=== PATIENT | female | born 1995 | race Caucasian/White ===

== ENCOUNTER 2019-12-11 14:21 | Emergency (ER) | payer SELFPAY ==
[~2019-12-11] VITALS: Ht 160 cm; Wt 90.0 kg
[2019-12-11 14:55] LABS: BILIRUBIN,URINE SMALL (NEG); CLARITY,URINE CLEAR; COLOR,URINE AMBER; NITRITE,URINE NEGATIVE (NEG); PROTEIN,URINE 30 mg/dL (NEG-TRACE); UROBILINOGEN,URINE 0.2 mg/dL (0.2 mg/dL)
[2019-12-11 14:59] LABS: BACTERIA,URINE FEW /HPF (0-FEW); SQUAMOUS EPITHELIAL CELL,UR MANY /LPF
[2019-12-11 15:00] LABS: AMORPHOUS SEDIMENT,UR PRESENT /HPF
[2019-12-11] MEDS ORDERED: HYDROmorphone 2 MG/ML VIAL IVP ONE ×2 (15:00→16:45)
[2019-12-11] MEDS ORDERED: KETOROLAC 30 MG/ML VIAL. IVP ONE (15:00)
[2019-12-11] MEDS ORDERED: ONDANSETRON PF 4 MG/2 ML VIAL. IVP ONE ×2 (15:00→19:00)
--- NOTE | 2019-12-11 15:01 | PHYS DOC ---
Past Medical History Past Medical History: No Pertinent History (AYANA WHARTON DO) Past Surgical History: No Surgical History, Other (AYANA WHARTON DO) Smoking Status: Never Smoker Alcohol Use: Rarely (AYANA WHARTON DO) General Adult EDM: Chief Complaint: ABDOMINAL PAIN HPI: HPI: 24-year-old female past medical history of obesity with gastric bypass 9 weeks ago, presents the ED with complaints of left flank pain that is now radiated down to her left lower quadrant that started around 11 AM with associated nausea, hot flashes, dysuria, suprapubic pain and decreased urine output. Patient's last bowel movement was last night. LMP was the end of October. No prior history of the symptoms. PSH-gastric bypass. ROS: Denies associated chills, headache, neck stiffness, cough, sore throat, chest pain, dyspnea, hemoptysis, vomiting, diarrhea, melena, hematochezia, hematemesis, leg swelling, rash, hematuria or neuro deficits. (AYANA WHARTON DO) Review of Systems: Review of Systems: Constitutional: Denies fever or chills. [] HENT: Denies nasal congestion or sore throat. [] Respiratory: Denies cough or shortness of breath. [] Cardiovascular: Denies chest pain or edema. [] GI: vomiting, bloody stools or diarrhea. [] : Denies dysuria. [] Musculoskeletal: Deniesjoint pain. [] Integument: Denies rash. [] Neurologic: Denies headache, focal weakness or sensory changes. [] Endocrine: Denies polydipsia. [] Psychiatric: Denies depression or anxiety. [] (AYANA WHARTON DO) Allergies: Allergies: Allergies Coded Allergies Type Severity Reaction Last Updated Verified Penicillins Allergy Mild RASH 12/11/19 Yes (AYANA WHARTON DO) Physical Exam: PE: Constitutional: uncomfortable, writhing in ed stretcher, non-toxic appearance. [] HENT: Normocephalic, atraumatic, bilateral external ears normal, oropharynx moist, nose normal. [] Eyes: EOMI, conjunctiva normal, no discharge. [] Neck: Normal range of motion, no tenderness, supple, no stridor. [] Cardiovascular:Heart rate regular rhythm, no murmur [] Lungs & Thorax: Bilateral breath sounds clear to auscultation [] Abdomen: Bowel sounds normal, soft, no tenderness-cannot reproduce llq pain, no masses, no pulsatile masses. [] No Rovsing sign, no Vizcarra sign no pain at McBurney's point Skin: Warm, dry, no erythema, no rash. [] Back: No tenderness, +left CVA tenderness. [] Extremities: No tenderness, no cyanosis, no clubbing, ROM intact, no edema. [] Neurologic: Alert and oriented X 3, normal motor function, normal sensory function, no focal deficits noted. [] Psychologic: Affect normal, judgement normal, mood normal. [] (AYANA WHARTON DO) Current Patient Data: Labs: Laboratory Tests Test 12/11/19 14:39 POC Urine HCG, Qualitative Hcg negative (Negative) Vital Signs: Vital Signs Date Time Temp Pulse Resp B/P (MAP) Pulse Ox O2 Delivery O2 Flow Rate FiO2 12/11/19 14:36 97.3 70 22 122/66 (84) 99 Room Air 97.3 (AYANA WHARTON DO) EKG: EKG: [] (AYANA WHARTON DO) Radiology/Procedures: Radiology/Procedures: IMAGING REPORT Signed PATIENT: MARIA VICTORIA HUGHES ACCOUNT: [id number] : 1995 LOCATION: ER AGE: 24 SEX: F EXAM STATUS: REG ER ORD. PHYSICIAN: AYANA WHARTON DO REASON: left flank pain, llq pain-GASTRIC BYPASS 9 WKS AGO PROCEDURE: CT ABDOMEN PELVIS WO CONTRAST Study: CT abdomen/pelvis without intravenous contrast Indication: Left flank and left lower quadrant pain. Gastric bypass approximately 9 weeks prior. Comparison: None. Technique: Helical CT imaging performed of the abdomen and pelvis without the use of intravenous contrast. Sagittal and coronal reformats were obtained. One or more of the following individualized dose reduction techniques were utilized for this examination: 1. Automated exposure control 2. Adjustment of the mA and/or kV according to patient size 3. Use of iterative reconstruction technique. Findings: Inherently limited evaluation without intravenous contrast. Chest: The visualized lungs are unremarkable. Tiny hiatal hernia with a small amount of suture material above the diaphragmatic hiatus in the setting of gastric bypass. Liver: Unremarkable. Gallbladder/Biliary Tree: The gallbladder is mildly distended but there are no findings to suggest acute cholecystitis. Unremarkable biliary tree. Pancreas: Unremarkable. Spleen: Normal in size. Adrenal Glands: No adrenal gland mass. Kidneys/Ureters/Bladder: No intrarenal stones or hydronephrosis. The kidneys are symmetric in size. A few small foci of mineralization are seen along the course of the distal left ureter but these are favored phleboliths and no stone is definitively present within the ureter and the left ureter is not asymmetrically dilated. A tiny focus of mineralization on image 84 series 2 is above the bladder dome. Reproductive Organs: No discrete abnormality of the uterus. The ovaries are difficult to delineate but no large mass or cyst is seen. Colon: Mostly collapsed. No acute abnormality. Appendix: Normal. Small Bowel: Operative changes of Monroe-en-Y gastric bypass. No abnormality seen at the proximal or distal anastomoses. No findings of obstruction. No pneumatosis. Stomach: The excluded portion of the stomach is within normal limits. No findings to suggest an anastomotic leak. Vasculature: Nonaneurysmal aorta. Lymph Nodes: Unremarkable. Peritoneum and Body Wall: Small volume free fluid within the deep pelvis measuring relatively simple in density. No free air. No acute abnormality of the body wall soft tissues. Bones: No acute or aggressive osseous process. No age accelerated degenerative changes. Miscellaneous: None. Impression: 1. No renal stone is identified or collecting dilatation to account for reported left flank pain. Additionally, no acute abnormality seen at the left lower quadrant. 2. Small amount of free fluid within the pelvis is favored physiologic given patient age. No concerning abnormality of the reproductive organs. 3. Status post Monroe-en-Y gastric bypass. No obstruction or evidence of an anastomotic leak. Electronically signed by: ALAN BAJWA MD (12/11/2019 3:44 PM) [id number] DICTATED and SIGNED BY: ALAN BAJWA MD DATE: 12/11/19 1544 [facility] Course & Med Decision Making: Course & Med Decision Making Pertinent Labs and Imaging studies reviewed. (See chart for details) Concern for left flank and left lower quadrant abdominal pain with sudden onset with associated nausea and sweating. Patient hemodynamically stable. Patient afebrile, no leukocytosis, labs unremarkable. Urinalysis is a contaminated sample with 5-10 WBCs, small leuks, small blood and 11-20 RBCs-fosfomycin given in ed. CT imaging with nonaneurysmal aorta, no nephrolithiasis or ureterolithiasis, normal appendix. There are a few small foci of mineralization are seen along the course of the distal left ureter but these are favored phleboliths and no stone is definitively present within the ureter and the left ureter is not asymmetrically dilated. A tiny focus of mineralization on image 84 series 2 is above the bladder dome. On repeat evaluation patient still with left lower quadrant, nonreproducible abdominal pain. Patient agrees with transvaginal ultrasound to evaluate for left ovarian torsion. Due to shift change patient was signed out to Dr. Kunz. (AYANA WHARTON DO) Course & Med Decision Making Assume care of patient from Dr Wharton at check out. At check out Pelvic ultrasound was pending to rule out ovarian torsion and Dr Wharton plan was to discharge the patient if work up was normal per checkout. Ultrasound is normal at this time. I reviewed the CT a/p which also appears normal at this time. Patient received antibiotics for minor UTI and does not need any further antibiotics. Patient was requesting pain medication and tylenol was ordered. Patient became very upset about pain management and felt she needed something stronger for pain. At this time with a normal work up and patient receiving two doses of dilaudid during her stay, I do not feel comfortable giving her any further narcotics. I did discuss this with the patient. I will provide her with a prescription for toradol and pyridium. I have also discussed the results and plan of care with the patient's mother per the patient's request. All questions were answered. Patient's test results and vitals while in the ED were fully reviewed and discussed with the patient. Patient is stable and at this time does not need admission to the hospital. We have discussed strict return precautions and the importance of following up with their Primary Care Physician. Patient stated understanding and was given an opportunity to ask any questions. Patient is in agreement with plan. (MARY KUNZ MD) Dragon Disclaimer: Dragon Disclaimer: This electronic medical record was generated, in whole or in part, using a voice recognition dictation system. (AYANA WHARTON DO) Departure Departure Impression: Primary Impression: Abdominal pain Additional Impressions: Flank pain UTI (urinary tract infection) Referrals: NO PCP (PCP) Scripts Ketorolac Tromethamine (KETOROLAC TROMETHAMINE) 10 Mg Tablet 1 TAB PO TID, #15 TAB Prov: MARY KUNZ MD 12/11/19 Phenazopyridine Hcl (PYRIDIUM) 100 Mg Tablet 100 MG PO TID for dysuria, #10 TAB Prov: MARY KUNZ MD 12/11/19 Justicifation of Admission Dx: Justifications for Admission: Justification of Admission Dx: N/A (AYANA WHARTON DO) AYANA WHARTON DO Dec 11, 2019 15:01 MARY KUNZ MD Dec 11, 2019 20:50
[2019-12-11 15:15] LABS: BASO % 0 % (0-3); EOS % 1 % (0-3); HEMATOCRIT 38.6 % (36.0-47.0); HEMOGLOBIN 13.1 g/dL (12.0-15.5); LYMPH # 1.3 x10^3/uL (1.0-4.8); LYMPH % 22 % (24-48); MEAN CORPUSCULAR HEMOGLOBIN 32 pg (25-35); MEAN CORPUSCULAR HGB CONC 34 g/dL (31-37); MEAN CORPUSCULAR VOLUME 94 fL (79-100); MONO # 0.4 x10^3/uL (0.0-1.1); MONO % 7 % (0-9); NEUT # 4.4 x10^3/uL (1.8-7.7); NEUT % 71 % (31-73); PLATELET COUNT 137 x10^3/uL (140-400); RED BLOOD COUNT 4.13 x10^6/uL (3.50-5.40); RED CELL DISTRIBUTION WIDTH 14.1 % (11.5-14.5); WHITE BLOOD COUNT 6.2 x10^3/uL (4.0-11.0)
[2019-12-11 15:25] LABS: ALBUMIN 3.6 g/dL (3.4-5.0); CALCIUM 8.8 mg/dL (8.5-10.1); CREATININE 0.8 mg/dL (0.6-1.0); GFR 86.7; POTASSIUM 3.6 mmol/L (3.5-5.1); TOTAL BILIRUBIN 0.4 mg/dL (0.2-1.0); TOTAL PROTEIN 7.1 g/dL (6.4-8.2)
[2019-12-11] MEDS ORDERED: IV NORMAL SALINE 1000ML BAG 1,000 ML IV ONE (15:30)
--- NOTE | 2019-12-11 15:47 | RAD ---
Study: CT abdomen/pelvis without intravenous contrast Indication: Left flank and left lower quadrant pain. Gastric bypass approximately 9 weeks prior. Comparison: None. Technique: Helical CT imaging performed of the abdomen and pelvis without the use of intravenous contrast. Sagittal and coronal reformats were obtained. One or more of the following individualized dose reduction techniques were utilized for this examination: 1. Automated exposure control 2. Adjustment of the mA and/or kV according to patient size 3. Use of iterative reconstruction technique. Findings: Inherently limited evaluation without intravenous contrast. Chest: The visualized lungs are unremarkable. Tiny hiatal hernia with a small amount of suture material above the diaphragmatic hiatus in the setting of gastric bypass. Liver: Unremarkable. Gallbladder/Biliary Tree: The gallbladder is mildly distended but there are no findings to suggest acute cholecystitis. Unremarkable biliary tree. Pancreas: Unremarkable. Spleen: Normal in size. Adrenal Glands: No adrenal gland mass. Kidneys/Ureters/Bladder: No intrarenal stones or hydronephrosis. The kidneys are symmetric in size. A few small foci of mineralization are seen along the course of the distal left ureter but these are favored phleboliths and no stone is definitively present within the ureter and the left ureter is not asymmetrically dilated. A tiny focus of mineralization on image 84 series 2 is above the bladder dome. Reproductive Organs: No discrete abnormality of the uterus. The ovaries are difficult to delineate but no large mass or cyst is seen. Colon: Mostly collapsed. No acute abnormality. Appendix: Normal. Small Bowel: Operative changes of Monroe-en-Y gastric bypass. No abnormality seen at the proximal or distal anastomoses. No findings of obstruction. No pneumatosis. Stomach: The excluded portion of the stomach is within normal limits. No findings to suggest an anastomotic leak. Vasculature: Nonaneurysmal aorta. Lymph Nodes: Unremarkable. Peritoneum and Body Wall: Small volume free fluid within the deep pelvis measuring relatively simple in density. No free air. No acute abnormality of the body wall soft tissues. Bones: No acute or aggressive osseous process. No age accelerated degenerative changes. Miscellaneous: None. Impression: 1. No renal stone is identified or collecting dilatation to account for reported left flank pain. Additionally, no acute abnormality seen at the left lower quadrant. 2. Small amount of free fluid within the pelvis is favored physiologic given patient age. No concerning abnormality of the reproductive organs. 3. Status post Monroe-en-Y gastric bypass. No obstruction or evidence of an anastomotic leak. Electronically signed by: ALAN BAJWA MD (12/11/2019 3:44 PM) [id number]
[2019-12-11] MEDS ORDERED: FOSFOMYCIN TROMETHAMINE 3 GM PACKET PO ONE (17:30)
[2019-12-11 20:00] VITALS: BP 130/83
--- NOTE | 2019-12-11 20:12 | RAD ---
EXAM: Pelvic Ultrasound Complete INDICATION: Reason: left lower quadrant pain, r/o left torsion / Spl. Instructions: / History: ? TECHNIQUE: Real-time ultrasound of the pelvis with permanent freeze-frame documentation. Transabdominal ultrasound only was performed COMPARISON:?None. ? FINDINGS: ? UTERUS:?Uterus 7.2 x 4.3 x 3.6 cm.? Endometrial thickness 0.9 cm. No uterine or endometrial abnormality. ? RIGHT OVARY/ADNEXA: Right ovary 3.5 x 2.4 x 2.3 cm.? A dominant follicle measuring 1.4 cm is noted. Normal ovarian blood flow. LEFT OVARY/ADNEXA:?Left ovary 3.3 x 1.9 x 2.2 cm. ?Unremarkable. Normal ovarian blood flow. ? OTHER:?Patient's area of concern in the left lower quadrant was imaged by ultrasound and showed peristaltic bowel loops. ? IMPRESSION: ? Normal transabdominal pelvic ultrasound. No evidence of left ovarian torsion. Electronically signed by: Myah Edmondson MD (12/11/2019 8:09 PM) [facility] [place]
[2019-12-11] MEDS ORDERED: PHEN100T82 PO (20:18)
[2019-12-11] MEDS ORDERED: KETO10TA PO (20:18)
[2019-12-11] MEDS ORDERED: ACETAMINOPHEN 325 MG TABLET. PO ONE (20:45)
== END 2019-12-11 20:31 | disposition home or self-care (01) ==
LOC: ER 14:21
DX: N39.0 Urinary tract infection, site not specified (principal); R10.32 Left lower quadrant pain; R11.0 Nausea; E66.8 Other obesity; Z68.35 Body mass index [BMI] 35.0-35.9, adult; Z88.0 Allergy status to penicillin; Z98.890 Other specified postprocedural states
CPT/HCPCS: 36415; 74176; 76856; 80053; 81001; 81025; 85025; 87086; 96361; 96374; 96375; 96376; 99285; J1170; J1885; J2405; J7030